=== PATIENT | female | born 1930 | race Hispanic/Latino ===

== ENCOUNTER 2017-06-10 15:23 | Emergency (ER) | payer OTHER ==
[~2017-06-10 15:23] MED LIST: ATOR10 PO; DOXY100T2 PO; GABA-318 PO; IRON150C5 PO; METO50TA18 PO
[2017-06-10] MEDS ORDERED: ACETAMINOPHEN 325 MG TAB ONE (15:49)
[2017-06-10] MEDS ORDERED: TETANUS/DIPHTHERIA TOXOID [ADULT] 0.5 ML VIAL IM ONE (16:01)
== END 2017-06-10 17:24 | disposition home or self-care (01) ==
LOC: EDH 15:23
DX: S43.491A Other sprain of right shoulder joint, initial encounter (principal); S80.02XA Contusion of left knee, initial encounter; S50.812A Abrasion of left forearm, initial encounter; E78.00 Pure hypercholesterolemia, unspecified; I10 Essential (primary) hypertension; W01.0XXA Fall on same level from slipping, tripping and stumbling without subsequent striking against object, initial encounter; Y93.01 Activity, walking, marching and hiking; Y92.89 Other specified places as the place of occurrence of the external cause; Y99.8 Other external cause status
CPT/HCPCS: 71100; 73000; 73020; 73030; 73080; 73562; 90471; 90714

== ENCOUNTER 2017-06-13 10:35 | Observation (INO) | payer OTHER ==
[~2017-06-13] VITALS: Ht 157.5 cm; Wt 65.7 kg
[2017-06-13 11:19] LABS: BASOPHILS % (AUTO) 0.2 % (0.0-5.0); HEMATOCRIT 42.1 % (36-48); LYMPHOCYTES % (AUTO) 4.4 % (21.0-51.0); MEAN CORPUSCULAR HEMOGLOBIN 27.5 pg (27.0-33.0); MEAN CORPUSCULAR HGB CONC 32.4 g/dL (32.0-36.0); MEAN CORPUSCULAR VOLUME 84.9 fL (79-99); MONOCYTES % (AUTO) 6.1 % (3.0-13.0); NEUTROPHILS % (AUTO) 89.3 % (40.0-77.0); PLATELET COUNT (AUTO) 293 K/uL (130-400); RED BLOOD CELL COUNT(AUTO) 4.96 MIL/uL (4.00-5.50); RED CELL DISTRIBUTION WIDTH 14.8 % (11.0-15.5); WHITE BLOOD COUNT (AUTO) 18.3 K/uL (4.8-10.8)
[2017-06-13 11:20] LABS: APPEARANCE,URINE Clear (CLEAR); BILIRUBIN,URINE Negative (NEGATIVE); COLOR,URINE Yellow (YELLOW); GLUCOSE, URINE (UA) Negative (NEGATIVE); KETONES,URINE >=80 mg/dL (NEGATIVE); LEUKOCYTE ESTERASE ,URINE Negative (NEGATIVE); NITRATE,URINE Negative (NEGATIVE); OCCULT BLOOD,URINE Large (NEGATIVE); PROTEIN,URINE POS 2+ (NEGATIVE); UROBILINOGEN,URINE 0.2 mg/dL (0.2-1.0)
[2017-06-13 11:29] LABS: CREATININE 0.6 mg/dL (0.5-1.5); POTASSIUM 3.5 mmol/L (3.5-5.1)
[2017-06-13 11:37] LABS: INR 1.04 (0.85-1.15); PARTIAL THROMBOPLASTIN TIME 22.6 SEC (26.3-35.5); PROTHROMBIN TIME 10.9 SEC (9.6-11.6)
[2017-06-13 11:40] LABS: BACTERIA,URINE Rare /HPF (None Seen); RBC,URINE 0-1 /HPF (0-1); SQUAMOUS EPITHELIAL CELL,UR Rare /LPF (0-2); WBC,URINE 0-1 /HPF (0-1)
[2017-06-13 11:51] LABS: ALBUMIN 3.2 g/dL (3.5-5.0); CREATINE KINASE MB 52.4 ng/mL (0.5-3.6); TOTAL PROTEIN, SERUM 7.7 g/dL (6.0-8.3)
[2017-06-13 12:50] LABS: B-TYPE NATRIURETIC PEPTIDE 87 pg/mL (0-100)
[2017-06-13] MEDS ORDERED: LEVOFLOXACIN 750 MG/D5W 150 ML 150 ML ONE (13:23)
[2017-06-13] MEDS ORDERED: HYDRALAZINE HCL 20 MG/ML VIAL IV PRN (13:45)
[2017-06-13] MEDS ORDERED: MAG HYDROX/AL HYDROX/SIMETH ES 30 ML SUSP UDCUP PO PRN (13:45)
[2017-06-13] MEDS ORDERED: MORPHINE SULFATE 2 MG/ML 1ML SYG IV PRN (13:45)
[2017-06-13] MEDS ORDERED: NITROGLYCERIN 0.4 MG SL TAB SL PRN (13:45)
[2017-06-13] MEDS ORDERED: ACETAMINOPHEN 325 MG TAB PO PRN ×2 (13:45)
[2017-06-13] MEDS ORDERED: ACETAMINOPHEN-CODEINE 300/30MG TAB PO PRN (13:45)
[2017-06-13] MEDS ORDERED: CEFTRIAXONE 1GM/D5W 50ML 50 ML IV SCH (13:45)
[2017-06-13] MEDS: AZITHROMYCIN 250 MG TABLET PO SCH (13:45)
[2017-06-13] MEDS ORDERED: ONDANSETRON HCL 4 MG/2 ML VIAL IV PRN (13:45)
[2017-06-13] MEDS ORDERED: LACTULOSE 20 GM/30 ML UDCUP PO PRN (13:45)
[2017-06-13] MEDS ORDERED: ONDANSETRON HCL 4 MG/2 ML VIAL ONE (13:51)
[2017-06-13] MEDS: CEFTRIAXONE SODIUM 1 GM IVP SCH (14:00)
[2017-06-13] MEDS ORDERED: ENOXAPARIN SODIUM 30 MG/0.3 ML SQ ONE (15:18)
[2017-06-13] MEDS ORDERED: SODIUM CHLORIDE 0.9% 1000ML 1,000 ML IV ONE (15:18)
[2017-06-13] MEDS ORDERED: CEFTRIAXONE SODIUM 1 GM ONE (15:18)
[2017-06-13] MEDS ORDERED: METOPROLOL TARTRATE 50 MG TAB ONE (15:18)
[2017-06-13] MEDS ORDERED: FAMOTIDINE 20MG TAB 20 MG TAB ONE (15:19)
[2017-06-13] MEDS ORDERED: AZITHROMYCIN 250 MG TABLET PO ONE (15:19)
[2017-06-13] MEDS ORDERED: ACETAMINOPHEN-CODEINE 300/30MG TAB ONE (15:30)
[2017-06-13 18:19] VITALS: BP 125/66
[2017-06-13 20:00] VITALS: BP 125/82
[2017-06-13] MEDS: FAMOTIDINE 20MG TAB 20 MG TAB PO SCH (22:21)
[2017-06-13] MEDS: METOPROLOL TARTRATE 25 MG TAB PO SCH (22:21)
[2017-06-14] VITALS: BP 141/76
[2017-06-14 03:32] LABS: HEMATOCRIT 37.9 % (36-48); MEAN CORPUSCULAR HEMOGLOBIN 27.6 pg (27.0-33.0); MEAN CORPUSCULAR HGB CONC 32.5 g/dL (32.0-36.0); MEAN CORPUSCULAR VOLUME 84.9 fL (79-99); PLATELET COUNT (AUTO) 237 K/uL (130-400); RED BLOOD CELL COUNT(AUTO) 4.47 MIL/uL (4.00-5.50); WHITE BLOOD COUNT (AUTO) 11.1 K/uL (4.8-10.8)
[2017-06-14] MEDS: SODIUM CHLORIDE 0.9% 1000ML 1,000 ML IV SCH ×2 (03:49→05:52)
[2017-06-14 03:50] LABS: CREATININE 0.6 mg/dL (0.5-1.5); POTASSIUM 3.5 mmol/L (3.5-5.1)
[2017-06-14 04:00] VITALS: BP 153/90
[2017-06-14 08:00] VITALS: BP 144/84
[2017-06-14] MEDS: METOPROLOL TARTRATE 25 MG TAB PO SCH ×2 (09:00→21:14)
[2017-06-14] MEDS: METOPROLOL TARTRATE 50 MG TAB PO SCH (09:32)
[2017-06-14] MEDS: IRON POLYSACCHARIDES COMPLEX 150 MG CAPSULE PO SCH (09:32)
[2017-06-14] MEDS: GABAPENTIN 300 MG CAPSULE PO SCH ×3 (09:32→21:14)
[2017-06-14] MEDS: FAMOTIDINE 20MG TAB 20 MG TAB PO SCH ×2 (09:32→21:14)
[2017-06-14] MEDS: ENOXAPARIN SODIUM 30 MG/0.3 ML SQ SCH (09:35)
[2017-06-14 12:00] VITALS: BP 150/86
[2017-06-14] MEDS: CEFTRIAXONE SODIUM 1 GM IVP SCH (14:24)
[2017-06-14] MEDS: AZITHROMYCIN 250 MG TABLET PO SCH (14:24)
[2017-06-14 16:00] VITALS: BP 149/87
[2017-06-14 20:00] VITALS: BP 132/72
[2017-06-14] MEDS ORDERED: ATORVASTATIN CALCIUM 10 MG TABLET PO SCH (21:00)
[2017-06-15] VITALS: BP 153/90
[2017-06-15 04:00] VITALS: BP 146/66
[2017-06-15 04:25] LABS: CREATININE 0.5 mg/dL (0.5-1.5)
[2017-06-15 08:00] VITALS: BP 137/69
[2017-06-15] MEDS: FAMOTIDINE 20MG TAB 20 MG TAB PO SCH (09:58)
[2017-06-15] MEDS: GABAPENTIN 300 MG CAPSULE PO SCH (09:58)
[2017-06-15] MEDS: IRON POLYSACCHARIDES COMPLEX 150 MG CAPSULE PO SCH (09:58)
[2017-06-15] MEDS: ENOXAPARIN SODIUM 30 MG/0.3 ML SQ SCH (09:58)
[2017-06-15] MEDS: METOPROLOL TARTRATE 50 MG TAB PO SCH (09:58)
[2017-06-15 11:00] VITALS: BP 137/74
[2017-06-15] MEDS ORDERED: ACYCLOVIR 200 MG CAPSULE PO SCH (11:00)
== END 2017-06-15 14:06 ==
LOC: EDH 10:35 → EDHIP 13:33 → 3AH 18:15
PROVIDERS: ADMIT Internal Medicine; ATTEND Internal Medicine
DX: M62.82 Rhabdomyolysis (principal); I10 Essential (primary) hypertension; E78.5 Hyperlipidemia, unspecified; E78.00 Pure hypercholesterolemia, unspecified; R53.81 Other malaise; D72.829 Elevated white blood cell count, unspecified; B02.9 Zoster without complications
CPT/HCPCS: 36415 ×3; 70450; 71045; 71046; 71100; 72125; 72170; 73030; 73560 ×2; 80048 ×2; 80053; 81001; 82550 ×3; 82553; 83605 ×2; 83880; 84484; 85025; 85027; 85610; 85730; 87040 ×2; 87804 ×2; 96361; 96372 ×2; 96374; 96375; 97039; 97161; 99285; A4218; G0378 ×49; G8978; G8979; G8980; G8981; G8982; G8983; J0696 ×3; J1650 ×3; J1956; J2405; J7030 ×2

== ENCOUNTER 2018-01-19 12:05 | Inpatient (IN) | payer OTHER ==
[~2018-01-19] VITALS: Ht 160 cm; Wt 60.8 kg
[2018-01-19] MEDS ORDERED: IOHEXOL 350 MG/ML 100ML INFUS..BTL IV ONE (12:29)
[2018-01-19 12:37] LABS: BASOPHILS % (AUTO) 0.5 % (0.0-5.0); EOSINOPHILS % (AUTO) 0.4 % (0.0-8.0); HEMATOCRIT 39.9 % (36-48); LYMPHOCYTES % (AUTO) 18.2 % (21.0-51.0); MEAN CORPUSCULAR HEMOGLOBIN 29.2 pg (27.0-33.0); MEAN CORPUSCULAR HGB CONC 33.4 g/dL (32.0-36.0); MEAN CORPUSCULAR VOLUME 87.2 fL (79-99); NEUTROPHILS % (AUTO) 73.9 % (40.0-77.0); NUCLEATED RED BLOOD CELLS 0.1 % (0.0-0.19); PLATELET COUNT (AUTO) 245 K/uL (130-400); RED BLOOD CELL COUNT(AUTO) 4.57 MIL/uL (4.00-5.50); RED CELL DISTRIBUTION WIDTH 14.2 % (11.0-15.5); WHITE BLOOD COUNT (AUTO) 10.1 K/uL (4.8-10.8)
[2018-01-19 12:58] LABS: CREATININE 0.7 mg/dL (0.5-1.5); INR 0.93 (0.85-1.15); PARTIAL THROMBOPLASTIN TIME 26.1 SEC (26.3-35.5); POTASSIUM 3.9 mmol/L (3.5-5.1); PROTHROMBIN TIME 9.8 SEC (9.6-11.6)
[2018-01-19 13:03] LABS: ALBUMIN 3.4 g/dL (3.5-5.0); BILIRUBIN,TOTAL 0.8 mg/dL (0.2-1.0); TOTAL PROTEIN, SERUM 7.1 g/dL (6.0-8.3)
[2018-01-19] MEDS ORDERED: LIDOCAINE HCL MPF 1% 5ML VIAL ONE (13:20)
[2018-01-19] MEDS ORDERED: ONDANSETRON HCL 4 MG/2 ML VIAL ONE ×2 (13:31→13:33)
[2018-01-19] MEDS ORDERED: MORPHINE SULFATE 4 MG/1ML SYG ONE ×3 (13:31→15:55)
[2018-01-19] MEDS ORDERED: TETANUS/DIPHTHERIA TOXOID [ADULT] 0.5 ML VIAL IM ONE (14:53)
[2018-01-19] MEDS ORDERED: SODIUM CHLORIDE 0.9% 1000ML 1,000 ML IV ONE (15:39)
[2018-01-19] MEDS ORDERED: ONDANSETRON HCL 4 MG/2 ML VIAL IVP PRN (15:45)
[2018-01-19] MEDS: SODIUM CHLORIDE 0.9% 1000ML 1,000 ML IV SCH (15:45)
[2018-01-19] MEDS ORDERED: MORPHINE SULFATE 4 MG/1ML SYG IVP PRN (15:45)
[2018-01-19 16:38] LABS: APPEARANCE,URINE Clear (CLEAR); BILIRUBIN,URINE Negative (NEGATIVE); COLOR,URINE Yellow (YELLOW); GLUCOSE, URINE (UA) Negative (NEGATIVE); KETONES,URINE Trace mg/dL (NEGATIVE); LEUKOCYTE ESTERASE ,URINE Moderate (NEGATIVE); NITRATE,URINE Negative (NEGATIVE); OCCULT BLOOD,URINE Small (NEGATIVE); PROTEIN,URINE Negative (NEGATIVE)
[2018-01-19 16:49] LABS: BACTERIA,URINE Rare /HPF (None Seen); SQUAMOUS EPITHELIAL CELL,UR Rare /HPF (0-2)
[2018-01-19 17:10] VITALS: BP 140/71
[2018-01-19 19:00] VITALS: BP 149/72
[2018-01-19] MEDS: MORPHINE SULFATE 4 MG/1ML SYG IVP PRN (20:55)
[2018-01-19 23:00] VITALS: BP 136/73
[2018-01-19] MEDS ORDERED: CLONIDINE HCL 0.1 MG TABLET PO PRN (23:00)
[2018-01-20] MEDS: SODIUM CHLORIDE 0.9% 1000ML 1,000 ML IV SCH ×2 (01:13→15:00)
[2018-01-20] MEDS: MORPHINE SULFATE 4 MG/1ML SYG IVP PRN ×4 (02:57→23:53)
[2018-01-20 04:00] VITALS: BP 146/80
[2018-01-20 04:07] LABS: HEMATOCRIT 38.7 % (36-48); MEAN CORPUSCULAR HGB CONC 33.1 g/dL (32.0-36.0); MEAN CORPUSCULAR VOLUME 87.8 fL (79-99); PLATELET COUNT (AUTO) 168 K/uL (130-400); RED CELL DISTRIBUTION WIDTH 14.5 % (11.0-15.5); WHITE BLOOD COUNT (AUTO) 6.8 K/uL (4.8-10.8)
[2018-01-20 04:25] LABS: CREATININE 0.7 mg/dL (0.5-1.5); POTASSIUM 3.9 mmol/L (3.5-5.1)
[2018-01-20 07:00] VITALS: BP 140/84
[2018-01-20 11:00] VITALS: BP 141/55
[2018-01-20 16:54] VITALS: BP 174/93
[2018-01-20] MEDS: LOSARTAN 50 MG TABLET PO SCH (19:15)
[2018-01-20 19:23] LABS: BASOPHILS % (AUTO) 0.3 % (0.0-5.0); EOSINOPHILS % (AUTO) 0.5 % (0.0-8.0); HEMATOCRIT 36.1 % (36-48); LYMPHOCYTES % (AUTO) 9.3 % (21.0-51.0); MEAN CORPUSCULAR HEMOGLOBIN 29.1 pg (27.0-33.0); MEAN CORPUSCULAR HGB CONC 33.2 g/dL (32.0-36.0); MEAN CORPUSCULAR VOLUME 87.6 fL (79-99); MONOCYTES % (AUTO) 8.6 % (3.0-13.0); NEUTROPHILS % (AUTO) 81.3 % (40.0-77.0); PLATELET COUNT (AUTO) 160 K/uL (130-400); RED BLOOD CELL COUNT(AUTO) 4.12 MIL/uL (4.00-5.50); RED CELL DISTRIBUTION WIDTH 14.4 % (11.0-15.5); WHITE BLOOD COUNT (AUTO) 7.1 K/uL (4.8-10.8)
[2018-01-20 20:00] VITALS: BP 179/81
[2018-01-20] MEDS ORDERED: METOPROLOL TARTRATE 25 MG TAB PO SCH (21:00)
[2018-01-20] MEDS: GABAPENTIN 300 MG CAPSULE PO SCH (21:00)
[2018-01-20] MEDS: ATORVASTATIN CALCIUM 20 MG TABLET PO SCH (21:00)
[2018-01-20] MEDS: ENOXAPARIN SODIUM 30 MG/0.3 ML SQ SCH (21:00)
[2018-01-20] MEDS: METOPROLOL TARTRATE 50 MG TAB PO SCH (21:00)
[2018-01-20] MEDS ORDERED: HALOPERIDOL LACTATE 5 MG/ML VIAL ONE (22:08)
[2018-01-21] VITALS (7 sets, daily range): BP systolic 98–233; BP diastolic 51–103
[2018-01-21] MEDS: SODIUM CHLORIDE 0.9% 1000ML 1,000 ML IV SCH ×2 (00:22→08:52)
[2018-01-21] MEDS ORDERED: HYDRALAZINE HCL 20 MG/ML VIAL ONE (07:45)
[2018-01-21] MEDS: MORPHINE SULFATE 4 MG/1ML SYG IVP PRN (07:47)
[2018-01-21] MEDS ORDERED: HYDRALAZINE HCL 20 MG/ML VIAL IV PRN (08:15)
[2018-01-21] MEDS: METOPROLOL TARTRATE 50 MG TAB PO SCH (08:30)
[2018-01-21] MEDS: LOSARTAN 50 MG TABLET PO SCH (08:30)
[2018-01-21] MEDS: GABAPENTIN 300 MG CAPSULE PO SCH ×3 (08:31→19:56)
[2018-01-21] MEDS: CLONAZEPAM 1 MG TABLET PO SCH ×2 (08:31→19:56)
[2018-01-21] MEDS: ENOXAPARIN SODIUM 30 MG/0.3 ML SQ SCH ×2 (08:35→19:57)
[2018-01-21] MEDS ORDERED: LABETALOL HCL 100 MG TABLET PO SCH (09:00)
[2018-01-21] MEDS ORDERED: CYAN500 PO (11:55)
[2018-01-21] MEDS ORDERED: METO25TA6 PO (11:55)
[2018-01-21] MEDS ORDERED: MECL-129 PO (11:55)
[2018-01-21] MEDS ORDERED: CHOL200074 PO (11:55)
[2018-01-21] MEDS ORDERED: KETOROLAC TROMETHAMINE 15MG/ML IV PRN (16:00)
[2018-01-21] MEDS ORDERED: LABETALOL HCL 100 MG TABLET ONE (16:39)
[2018-01-21] MEDS ORDERED: ACETAMINOPHEN 325 MG TAB ONE (16:40)
[2018-01-21] MEDS: ACETAMINOPHEN 325 MG TAB PO SCH (16:44)
[2018-01-21] MEDS: LABETALOL HCL 100 MG TABLET PO SCH (16:45)
[2018-01-21] MEDS: IRON POLYSACCHARIDES COMPLEX 150 MG CAPSULE PO SCH (16:45)
[2018-01-21] MEDS: ATORVASTATIN CALCIUM 20 MG TABLET PO SCH (19:55)
[2018-01-21 20:08] LABS: APPEARANCE,URINE Clear (CLEAR); BILIRUBIN,URINE Negative (NEGATIVE); COLOR,URINE Yellow (YELLOW); GLUCOSE, URINE (UA) Negative (NEGATIVE); KETONES,URINE >=80 mg/dL (NEGATIVE); LEUKOCYTE ESTERASE ,URINE Negative (NEGATIVE); NITRATE,URINE Negative (NEGATIVE); OCCULT BLOOD,URINE Negative (NEGATIVE); PH,URINE 6.5 (5.0-8.0); PROTEIN,URINE POS 1+ (NEGATIVE)
[2018-01-21 20:16] LABS: BACTERIA,URINE None Seen /HPF (None Seen); RBC,URINE None Seen /HPF (0-1); WBC,URINE None Seen /HPF (0-1)
[2018-01-21] MEDS ORDERED: CEFAZOLIN SODIUM 1 GM VIAL IVP PRN (20:30)
[2018-01-21] MEDS: KETOROLAC TROMETHAMINE 15MG/ML IV SCH (21:28)
[2018-01-22] VITALS (22 sets, daily range): BP systolic 98–170; BP diastolic 50–76
[2018-01-22] MEDS: ACETAMINOPHEN 325 MG TAB PO SCH ×4 (01:00→20:07)
[2018-01-22] MEDS: KETOROLAC TROMETHAMINE 15MG/ML IV SCH ×4 (04:15→22:28)
[2018-01-22 04:55] LABS: HEMATOCRIT 29.7 % (36-48); MEAN CORPUSCULAR HEMOGLOBIN 29.8 pg (27.0-33.0); MEAN CORPUSCULAR HGB CONC 33.8 g/dL (32.0-36.0); PLATELET COUNT (AUTO) 147 K/uL (130-400); RED BLOOD CELL COUNT(AUTO) 3.37 MIL/uL (4.00-5.50); RED CELL DISTRIBUTION WIDTH 14.4 % (11.0-15.5); WHITE BLOOD COUNT (AUTO) 5.7 K/uL (4.8-10.8)
[2018-01-22 05:01] LABS: PARTIAL THROMBOPLASTIN TIME 30.4 SEC (26.3-35.5); PROTHROMBIN TIME 10.5 SEC (9.6-11.6)
[2018-01-22 05:19] LABS: CREATININE 0.9 mg/dL (0.5-1.5); THYROID STIMULATING HORMONE 1.08 uIU/mL (0.36-3.74)
[2018-01-22] MEDS ORDERED: POTASSIUM CHLORIDE 20MEQ/100ML 100 ML IV ONE (05:39)
[2018-01-22] MEDS ORDERED: POTASSIUM CHLORIDE 20MEQ/100ML 100 ML IV PRN ×2 (05:45)
[2018-01-22] MEDS ORDERED: LIDOCAINE HCL-MPF 1% 2ML VIAL IVP PRN ×2 (05:45)
[2018-01-22] MEDS ORDERED: POTASSIUM CHLORIDE 20 MEQ ERTAB PO PRN (05:45)
[2018-01-22] MEDS ORDERED: POTASSIUM CHLORIDE 10% ELIXIR 20 MEQ/15 ML UDCUP PO PRN (05:45)
[2018-01-22] MEDS: LABETALOL HCL 100 MG TABLET PO SCH ×2 (09:00→20:04)
[2018-01-22] MEDS: GABAPENTIN 300 MG CAPSULE PO SCH ×3 (09:00→20:20)
[2018-01-22] MEDS: CLONAZEPAM 1 MG TABLET PO SCH ×2 (09:00→20:06)
[2018-01-22] MEDS: IRON POLYSACCHARIDES COMPLEX 150 MG CAPSULE PO SCH (09:00)
[2018-01-22] MEDS: LOSARTAN 50 MG TABLET PO SCH (09:00)
[2018-01-22] MEDS: ENOXAPARIN SODIUM 30 MG/0.3 ML SQ SCH ×2 (09:00→20:14)
[2018-01-22] MEDS ORDERED: PROPOFOL 10 MG/ML 20ML VIAL IV ONE ×2 (10:24→14:15)
[2018-01-22] MEDS ORDERED: ONDANSETRON HCL 4 MG/2 ML VIAL ONE ×3 (10:24→14:49)
[2018-01-22] MEDS ORDERED: FENTANYL CITRATE PF 50 MCG/1 ML 2ML VIAL ONE (10:24)
[2018-01-22] MEDS ORDERED: LIDOCAINE PF 2% 5ML ABBOJECT ONE ×2 (10:24→14:14)
[2018-01-22] MEDS ORDERED: EPHEDRINE SULFATE 50 MG/ML AMPULE ONE ×2 (10:24→15:15)
[2018-01-22] MEDS ORDERED: ROPIVACAINE 0.5% 5MG/ML 30ML IJ ONE (10:28)
[2018-01-22] MEDS ORDERED: DEXAMETHASONE SOD PHOSPHATE 10MG/ML 1ML VIAL ONE (10:29)
[2018-01-22] MEDS ORDERED: FAMOTIDINE/PF 20 MG/2 ML VIAL IV ONE (14:20)
[2018-01-22] MEDS ORDERED: HYDROMORPHONE 1 MG/1 ML AMP ONE (14:31)
[2018-01-22] MEDS ORDERED: CEFAZOLIN SODIUM 1 GM VIAL ONE (15:00)
[2018-01-22] MEDS ORDERED: SUCCINYLCHOLINE 200MG/10ML SYR ONE (15:19)
[2018-01-22] MEDS: SODIUM CHLORIDE 0.9% 1000ML 1,000 ML IV SCH (16:55)
[2018-01-22] MEDS: ACETAMINOPHEN EXTRA STRENGTH 500 MG TABLET PO SCH ×2 (18:30→20:06)
[2018-01-22] MEDS: ATORVASTATIN CALCIUM 20 MG TABLET PO SCH (20:06)
[2018-01-22] MEDS: CEFAZOLIN SODIUM 1 GM VIAL IVP SCH (22:27)
[2018-01-23] VITALS (7 sets, daily range): BP systolic 98–126; BP diastolic 52–68
[2018-01-23] MEDS: ACETAMINOPHEN 325 MG TAB PO SCH ×4 (00:19→20:26)
[2018-01-23] MEDS: KETOROLAC TROMETHAMINE 15MG/ML IV SCH ×4 (04:08→17:09)
[2018-01-23 04:17] LABS: BASOPHILS % (AUTO) 0.1 % (0.0-5.0); HEMATOCRIT 30.6 % (36-48); LYMPHOCYTES % (AUTO) 6.1 % (21.0-51.0); MEAN CORPUSCULAR HEMOGLOBIN 30.2 pg (27.0-33.0); MEAN CORPUSCULAR HGB CONC 34.1 g/dL (32.0-36.0); MEAN CORPUSCULAR VOLUME 88.4 fL (79-99); MONOCYTES % (AUTO) 4.3 % (3.0-13.0); NEUTROPHILS % (AUTO) 89.5 % (40.0-77.0); PLATELET COUNT (AUTO) 186 K/uL (130-400); RED BLOOD CELL COUNT(AUTO) 3.46 MIL/uL (4.00-5.50); RED CELL DISTRIBUTION WIDTH 14.7 % (11.0-15.5); WHITE BLOOD COUNT (AUTO) 5.7 K/uL (4.8-10.8)
[2018-01-23 04:25] LABS: CREATININE 0.7 mg/dL (0.5-1.5); POTASSIUM 3.7 mmol/L (3.5-5.1)
[2018-01-23] MEDS: CEFAZOLIN SODIUM 1 GM VIAL IVP SCH (05:30)
[2018-01-23] MEDS: ENOXAPARIN SODIUM 30 MG/0.3 ML SQ SCH ×2 (09:03→20:31)
[2018-01-23] MEDS: CLONAZEPAM 1 MG TABLET PO SCH ×2 (09:03→20:25)
[2018-01-23] MEDS: LOSARTAN 50 MG TABLET PO SCH (09:04)
[2018-01-23] MEDS: LABETALOL HCL 100 MG TABLET PO SCH ×2 (09:04→20:25)
[2018-01-23] MEDS: IRON POLYSACCHARIDES COMPLEX 150 MG CAPSULE PO SCH (09:04)
[2018-01-23] MEDS: GABAPENTIN 300 MG CAPSULE PO SCH ×3 (09:05→20:25)
[2018-01-23] MEDS ORDERED: HALOPERIDOL 5 MG TABLET PO PRN ×2 (16:30→17:15)
[2018-01-23] MEDS: DiphenhydrAMINE HCL 50 MG/ML VIAL IM PRN ×2 (17:09→22:49)
[2018-01-23 18:17] LABS: APPEARANCE,URINE Clear (CLEAR); BILIRUBIN,URINE Negative (NEGATIVE); COLOR,URINE Dark Yellow (YELLOW); GLUCOSE, URINE (UA) Negative (NEGATIVE); KETONES,URINE Trace mg/dL (NEGATIVE); LEUKOCYTE ESTERASE ,URINE Trace (NEGATIVE); NITRATE,URINE Negative (NEGATIVE); OCCULT BLOOD,URINE Negative (NEGATIVE); PROTEIN,URINE POS 1+ (NEGATIVE)
[2018-01-23 18:27] LABS: BACTERIA,URINE Rare /HPF (None Seen); RBC,URINE 0-1 /HPF (0-1); SQUAMOUS EPITHELIAL CELL,UR Few /HPF (0-2)
[2018-01-23] MEDS: ATORVASTATIN CALCIUM 20 MG TABLET PO SCH (20:25)
[2018-01-24] MEDS: ACETAMINOPHEN 325 MG TAB PO SCH ×4 (01:00→18:28)
[2018-01-24] MEDS: KETOROLAC TROMETHAMINE 15MG/ML IV SCH ×4 (04:00→18:29)
[2018-01-24 04:54] VITALS: BP 106/54
[2018-01-24 07:30] VITALS: BP 135/65
[2018-01-24] MEDS: LOSARTAN 50 MG TABLET PO SCH ×3 (08:55→17:00)
[2018-01-24] MEDS: CLONAZEPAM 1 MG TABLET PO SCH ×3 (08:55→19:52)
[2018-01-24] MEDS: GABAPENTIN 300 MG CAPSULE PO SCH ×4 (08:55→19:52)
[2018-01-24] MEDS: IRON POLYSACCHARIDES COMPLEX 150 MG CAPSULE PO SCH ×3 (08:55→17:00)
[2018-01-24] MEDS: LABETALOL HCL 100 MG TABLET PO SCH ×3 (08:56→19:52)
[2018-01-24] MEDS: ENOXAPARIN SODIUM 30 MG/0.3 ML SQ SCH ×3 (08:56→19:52)
[2018-01-24 11:00] VITALS: BP 143/64
[2018-01-24 16:00] VITALS: BP 132/59
[2018-01-24 19:36] VITALS: BP 92/52
[2018-01-24] MEDS: ATORVASTATIN CALCIUM 20 MG TABLET PO SCH (20:01)
[2018-01-24] MEDS: DiphenhydrAMINE HCL 50 MG/ML VIAL IM PRN (20:02)
[2018-01-24 23:46] VITALS: BP 99/58
[2018-01-25] MEDS: ACETAMINOPHEN 325 MG TAB PO SCH ×4 (00:03→18:51)
[2018-01-25] MEDS: KETOROLAC TROMETHAMINE 15MG/ML IV SCH ×4 (03:25→21:45)
[2018-01-25 04:04] VITALS: BP 108/59
[2018-01-25 04:31] LABS: BASOPHILS % (AUTO) 0.4 % (0.0-5.0); EOSINOPHILS % (AUTO) 1.4 % (0.0-8.0); LYMPHOCYTES % (AUTO) 26.2 % (21.0-51.0); MEAN CORPUSCULAR HEMOGLOBIN 29.2 pg (27.0-33.0); MEAN CORPUSCULAR HGB CONC 32.8 g/dL (32.0-36.0); MEAN CORPUSCULAR VOLUME 88.9 fL (79-99); MONOCYTES % (AUTO) 11.9 % (3.0-13.0); NEUTROPHILS % (AUTO) 60.1 % (40.0-77.0); PLATELET COUNT (AUTO) 194 K/uL (130-400); RED BLOOD CELL COUNT(AUTO) 3.37 MIL/uL (4.00-5.50); RED CELL DISTRIBUTION WIDTH 14.8 % (11.0-15.5); WHITE BLOOD COUNT (AUTO) 3.6 K/uL (4.8-10.8)
[2018-01-25 04:55] LABS: ALBUMIN 2.3 g/dL (3.5-5.0); BILIRUBIN,TOTAL 0.6 mg/dL (0.2-1.0); CREATININE 0.6 mg/dL (0.5-1.5); POTASSIUM 3.4 mmol/L (3.5-5.1); TOTAL PROTEIN, SERUM 5.6 g/dL (6.0-8.3)
[2018-01-25 08:00] VITALS: BP 138/66
[2018-01-25] MEDS: LOSARTAN 50 MG TABLET PO SCH (08:48)
[2018-01-25] MEDS: CLONAZEPAM 1 MG TABLET PO SCH ×2 (08:48→19:43)
[2018-01-25] MEDS: LABETALOL HCL 100 MG TABLET PO SCH ×2 (08:48→19:43)
[2018-01-25] MEDS: IRON POLYSACCHARIDES COMPLEX 150 MG CAPSULE PO SCH (08:49)
[2018-01-25] MEDS: GABAPENTIN 300 MG CAPSULE PO SCH ×3 (08:49→19:46)
[2018-01-25] MEDS: ENOXAPARIN SODIUM 30 MG/0.3 ML SQ SCH ×2 (08:50→19:46)
[2018-01-25 11:00] VITALS: BP 128/69
[2018-01-25] MEDS: BISACODYL 5 MG TABLET.DR PO PRN (15:54)
[2018-01-25 19:04] VITALS: BP 109/61
[2018-01-25] MEDS: ATORVASTATIN CALCIUM 20 MG TABLET PO SCH (19:42)
[2018-01-25 23:26] VITALS: BP 114/69
[2018-01-26] MEDS: ACETAMINOPHEN 325 MG TAB PO SCH ×4 (00:41→18:46)
[2018-01-26] MEDS: DiphenhydrAMINE HCL 50 MG/ML VIAL IM PRN (02:06)
[2018-01-26 03:58] VITALS: BP 120/70
[2018-01-26] MEDS: KETOROLAC TROMETHAMINE 15MG/ML IV SCH ×2 (04:03→10:15)
[2018-01-26 05:19] LABS: BASOPHILS % (AUTO) 0.3 % (0.0-5.0); EOSINOPHILS % (AUTO) 1.1 % (0.0-8.0); HEMATOCRIT 34.7 % (36-48); LYMPHOCYTES % (AUTO) 14.9 % (21.0-51.0); MEAN CORPUSCULAR HEMOGLOBIN 28.4 pg (27.0-33.0); MEAN CORPUSCULAR HGB CONC 31.8 g/dL (32.0-36.0); MEAN CORPUSCULAR VOLUME 89.2 fL (79-99); MONOCYTES % (AUTO) 10.3 % (3.0-13.0); NEUTROPHILS % (AUTO) 73.4 % (40.0-77.0); PLATELET COUNT (AUTO) 198 K/uL (130-400); RED BLOOD CELL COUNT(AUTO) 3.89 MIL/uL (4.00-5.50); RED CELL DISTRIBUTION WIDTH 14.8 % (11.0-15.5); WHITE BLOOD COUNT (AUTO) 5.9 K/uL (4.8-10.8)
[2018-01-26 08:00] VITALS: BP 130/65
[2018-01-26] MEDS: CLONAZEPAM 1 MG TABLET PO SCH ×2 (08:53→21:35)
[2018-01-26] MEDS: LOSARTAN 50 MG TABLET PO SCH (08:54)
[2018-01-26] MEDS: IRON POLYSACCHARIDES COMPLEX 150 MG CAPSULE PO SCH (08:54)
[2018-01-26] MEDS: LABETALOL HCL 100 MG TABLET PO SCH ×2 (08:55→21:35)
[2018-01-26] MEDS: GABAPENTIN 300 MG CAPSULE PO SCH ×3 (08:56→21:34)
[2018-01-26] MEDS: ENOXAPARIN SODIUM 30 MG/0.3 ML SQ SCH ×2 (08:57→21:36)
[2018-01-26 12:00] VITALS: BP 112/68
[2018-01-26 16:00] VITALS: BP 108/68
[2018-01-26 19:30] VITALS: BP 103/51
[2018-01-26] MEDS: ATORVASTATIN CALCIUM 20 MG TABLET PO SCH (21:34)
[2018-01-26 23:02] VITALS: BP 115/59
[2018-01-27] MEDS: ACETAMINOPHEN 325 MG TAB PO SCH ×4 (01:00→18:17)
[2018-01-27 03:00] VITALS: BP 144/71
[2018-01-27 08:00] VITALS: BP 153/73
[2018-01-27] MEDS: PAROXETINE HCL 20 MG TABLET PO SCH (08:51)
[2018-01-27] MEDS: LOSARTAN 50 MG TABLET PO SCH (08:51)
[2018-01-27] MEDS: CLONAZEPAM 1 MG TABLET PO SCH ×2 (08:51→21:24)
[2018-01-27] MEDS: LABETALOL HCL 100 MG TABLET PO SCH ×2 (08:52→21:24)
[2018-01-27] MEDS: GABAPENTIN 300 MG CAPSULE PO SCH ×3 (08:55→21:23)
[2018-01-27] MEDS: IRON POLYSACCHARIDES COMPLEX 150 MG CAPSULE PO SCH (08:55)
[2018-01-27] MEDS: ENOXAPARIN SODIUM 30 MG/0.3 ML SQ SCH ×2 (08:59→21:25)
[2018-01-27 12:00] VITALS: BP 113/65
[2018-01-27 16:35] VITALS: BP 109/60
[2018-01-27 20:15] VITALS: BP 131/66
[2018-01-27] MEDS: ATORVASTATIN CALCIUM 20 MG TABLET PO SCH (21:23)
[2018-01-28] VITALS (8 sets, daily range): BP systolic 95–164; BP diastolic 53–85
[2018-01-28] MEDS: ACETAMINOPHEN 325 MG TAB PO SCH ×4 (01:32→18:44)
[2018-01-28] MEDS: PAROXETINE HCL 20 MG TABLET PO SCH (09:27)
[2018-01-28] MEDS: LOSARTAN 50 MG TABLET PO SCH (09:27)
[2018-01-28] MEDS: IRON POLYSACCHARIDES COMPLEX 150 MG CAPSULE PO SCH (09:27)
[2018-01-28] MEDS: LABETALOL HCL 100 MG TABLET PO SCH ×2 (09:27→21:36)
[2018-01-28] MEDS: CLONAZEPAM 1 MG TABLET PO SCH ×2 (09:28→21:36)
[2018-01-28] MEDS: GABAPENTIN 300 MG CAPSULE PO SCH ×3 (09:28→21:36)
[2018-01-28] MEDS: ENOXAPARIN SODIUM 30 MG/0.3 ML SQ SCH ×2 (09:29→21:38)
[2018-01-28 10:48] LABS: MEAN CORPUSCULAR HEMOGLOBIN 28.6 pg (27.0-33.0); MEAN CORPUSCULAR HGB CONC 32.4 g/dL (32.0-36.0); MEAN CORPUSCULAR VOLUME 88.3 fL (79-99); PLATELET COUNT (AUTO) 241 K/uL (130-400); RED BLOOD CELL COUNT(AUTO) 3.73 MIL/uL (4.00-5.50); RED CELL DISTRIBUTION WIDTH 14.7 % (11.0-15.5); WHITE BLOOD COUNT (AUTO) 4.2 K/uL (4.8-10.8)
[2018-01-28 10:54] LABS: CREATININE 0.6 mg/dL (0.5-1.5)
[2018-01-28] MEDS: ATORVASTATIN CALCIUM 20 MG TABLET PO SCH (21:36)
[2018-01-29] MEDS: ACETAMINOPHEN 325 MG TAB PO SCH ×4 (00:26→18:28)
[2018-01-29 04:32] VITALS: BP 104/54
[2018-01-29 07:32] VITALS: BP 115/61
[2018-01-29] MEDS: IRON POLYSACCHARIDES COMPLEX 150 MG CAPSULE PO SCH (09:34)
[2018-01-29] MEDS: GABAPENTIN 300 MG CAPSULE PO SCH ×3 (09:34→20:27)
[2018-01-29] MEDS: PAROXETINE HCL 20 MG TABLET PO SCH (09:35)
[2018-01-29] MEDS: CLONAZEPAM 1 MG TABLET PO SCH ×2 (09:35→20:25)
[2018-01-29] MEDS: LABETALOL HCL 100 MG TABLET PO SCH ×2 (09:35→20:26)
[2018-01-29] MEDS: MEGESTROL 400 MG/10 ML UDCUP PO SCH (09:36)
[2018-01-29] MEDS: ENOXAPARIN SODIUM 30 MG/0.3 ML SQ SCH ×2 (09:36→20:29)
[2018-01-29] MEDS: LOSARTAN 50 MG TABLET PO SCH (09:57)
[2018-01-29 10:44] VITALS: BP 136/73
[2018-01-29 16:09] VITALS: BP 96/52
[2018-01-29 19:43] VITALS: BP 141/69
[2018-01-29] MEDS: ATORVASTATIN CALCIUM 20 MG TABLET PO SCH (20:26)
[2018-01-29] MEDS: KETOROLAC TROMETHAMINE 15MG/ML IV PRN (23:50)
[2018-01-29 23:54] VITALS: BP 142/70
[2018-01-30] MEDS: ACETAMINOPHEN 325 MG TAB PO SCH ×5 (01:00→19:00)
[2018-01-30 03:28] VITALS: BP 133/63
[2018-01-30 08:00] VITALS: BP 129/73
[2018-01-30] MEDS: LOSARTAN 50 MG TABLET PO SCH (09:43)
[2018-01-30] MEDS: CLONAZEPAM 1 MG TABLET PO SCH ×2 (09:43→21:00)
[2018-01-30] MEDS: IRON POLYSACCHARIDES COMPLEX 150 MG CAPSULE PO SCH (09:43)
[2018-01-30] MEDS: GABAPENTIN 300 MG CAPSULE PO SCH ×3 (09:44→19:54)
[2018-01-30] MEDS: LABETALOL HCL 100 MG TABLET PO SCH ×2 (09:44→19:58)
[2018-01-30] MEDS: MEGESTROL 400 MG/10 ML UDCUP PO SCH (09:44)
[2018-01-30] MEDS: PAROXETINE HCL 20 MG TABLET PO SCH (09:44)
[2018-01-30] MEDS: ENOXAPARIN SODIUM 30 MG/0.3 ML SQ SCH ×2 (09:46→19:55)
[2018-01-30] MEDS: KETOROLAC TROMETHAMINE 15MG/ML IV PRN (11:04)
[2018-01-30 12:00] VITALS: BP 133/70
[2018-01-30 16:00] VITALS: BP 107/59
[2018-01-30] MEDS: ATORVASTATIN CALCIUM 20 MG TABLET PO SCH (19:56)
[2018-01-30 19:59] VITALS: BP 107/56
[2018-01-30 23:36] VITALS: BP 140/67
[2018-01-31] MEDS: KETOROLAC TROMETHAMINE 15MG/ML IV PRN ×2 (00:25→06:35)
[2018-01-31] MEDS: ACETAMINOPHEN 325 MG TAB PO SCH ×4 (00:26→19:42)
[2018-01-31 04:10] VITALS: BP 105/58
[2018-01-31 08:00] VITALS: BP 138/66
[2018-01-31] MEDS: LABETALOL HCL 100 MG TABLET PO SCH ×2 (09:42→19:42)
[2018-01-31] MEDS: PAROXETINE HCL 20 MG TABLET PO SCH (09:42)
[2018-01-31] MEDS: MEGESTROL 400 MG/10 ML UDCUP PO SCH (09:43)
[2018-01-31] MEDS: GABAPENTIN 300 MG CAPSULE PO SCH ×3 (09:43→19:42)
[2018-01-31] MEDS: LOSARTAN 50 MG TABLET PO SCH (09:43)
[2018-01-31] MEDS: CLONAZEPAM 1 MG TABLET PO SCH ×2 (09:43→19:39)
[2018-01-31] MEDS: IRON POLYSACCHARIDES COMPLEX 150 MG CAPSULE PO SCH (09:43)
[2018-01-31] MEDS: ENOXAPARIN SODIUM 30 MG/0.3 ML SQ SCH ×2 (09:44→19:40)
[2018-01-31] MEDS: TRAMADOL HCL 50 MG TABLET PO PRN (10:20)
[2018-01-31 11:00] VITALS: BP 100/50
[2018-01-31 16:00] VITALS: BP 117/68
[2018-01-31] MEDS: DiphenhydrAMINE HCL 50 MG/ML VIAL IM PRN (19:39)
[2018-01-31] MEDS: ATORVASTATIN CALCIUM 20 MG TABLET PO SCH (19:39)
[2018-01-31 20:00] VITALS: BP 117/60
[2018-02-01] VITALS (7 sets, daily range): BP systolic 110–125; BP diastolic 56–71
[2018-02-01] MEDS: ACETAMINOPHEN 325 MG TAB PO SCH ×4 (00:13→17:59)
[2018-02-01] MEDS: BISACODYL 5 MG TABLET.DR PO PRN (08:52)
[2018-02-01] MEDS: CLONAZEPAM 1 MG TABLET PO SCH (08:56)
[2018-02-01] MEDS: LOSARTAN 50 MG TABLET PO SCH ×2 (08:56→09:00)
[2018-02-01] MEDS: ENOXAPARIN SODIUM 30 MG/0.3 ML SQ SCH ×2 (08:57→23:21)
[2018-02-01] MEDS: MEGESTROL 400 MG/10 ML UDCUP PO SCH (08:57)
[2018-02-01] MEDS: PAROXETINE HCL 20 MG TABLET PO SCH (08:57)
[2018-02-01] MEDS: LABETALOL HCL 100 MG TABLET PO SCH ×2 (09:00→23:20)
[2018-02-01] MEDS: IRON POLYSACCHARIDES COMPLEX 150 MG CAPSULE PO SCH (09:01)
[2018-02-01] MEDS: KETOROLAC TROMETHAMINE 15MG/ML IV PRN ×2 (09:01→17:57)
[2018-02-01] MEDS: GABAPENTIN 300 MG CAPSULE PO SCH ×3 (09:01→23:19)
[2018-02-01] MEDS: TRAMADOL HCL 50 MG TABLET PO PRN (14:41)
[2018-02-01] MEDS ORDERED: CLONAZEPAM 0.5 MG TABLET PO PRN (15:45)
[2018-02-01] MEDS ORDERED: TRAZODONE HCL 50 MG TAB PO SCH (21:00)
[2018-02-01] MEDS: ATORVASTATIN CALCIUM 20 MG TABLET PO SCH (23:19)
[2018-02-02] MEDS: ACETAMINOPHEN 325 MG TAB PO SCH ×3 (00:59→16:32)
[2018-02-02 03:22] VITALS: BP 112/70
[2018-02-02 08:38] VITALS: BP 108/63
[2018-02-02] MEDS: LABETALOL HCL 100 MG TABLET PO SCH (09:00)
[2018-02-02] MEDS: LOSARTAN 50 MG TABLET PO SCH (09:00)
[2018-02-02] MEDS: PAROXETINE HCL 20 MG TABLET PO SCH (09:50)
[2018-02-02] MEDS: GABAPENTIN 300 MG CAPSULE PO SCH ×2 (09:50→16:27)
[2018-02-02] MEDS: MEGESTROL 400 MG/10 ML UDCUP PO SCH (09:50)
[2018-02-02] MEDS: IRON POLYSACCHARIDES COMPLEX 150 MG CAPSULE PO SCH (09:50)
[2018-02-02] MEDS: ENOXAPARIN SODIUM 30 MG/0.3 ML SQ SCH (09:52)
[2018-02-02 11:15] VITALS: BP 107/58
[2018-02-02] MEDS ORDERED: MEGE400O4 PO (16:34)
[2018-02-02] MEDS ORDERED: LABE100T5 PO (16:34)
[2018-02-02] MEDS ORDERED: TRAZ-220 PO (16:34)
[2018-02-02] MEDS ORDERED: TRAM50TA4 PO (16:34)
[2018-02-02] MEDS ORDERED: LOSA50TA2 PO (16:34)
[2018-02-02] MEDS: KETOROLAC TROMETHAMINE 15MG/ML IV PRN (16:37)
[2018-02-02 19:22] VITALS: BP 94/53
== END 2018-02-02 20:00 | DRG 493 ==
LOC: EDH 12:05 → EDHIP 13:50 → 2DH 17:06 → 4AH 01-20 16:32
PROVIDERS: ADMIT Internal Medicine; ATTEND Internal Medicine
PROC: 3E0234Z Introduction of Serum, Toxoid and Vaccine into Muscle, Percutaneous Approach (ICD-10-PCS; 2018-01-22)
PROC: 0QSK04Z Reposition Left Fibula with Internal Fixation Device, Open Approach (ICD-10-PCS; principal; 2018-01-22 14:55)
PROC: 0QSH04Z Reposition Left Tibia with Internal Fixation Device, Open Approach (ICD-10-PCS; 2018-01-22 14:55)
DX: S82.842A Displaced bimalleolar fracture of left lower leg, initial encounter for closed fracture (principal); S06.0X9A Concussion with loss of consciousness of unspecified duration, initial encounter; F05 Delirium due to known physiological condition; E44.0 Moderate protein-calorie malnutrition; M47.812 Spondylosis without myelopathy or radiculopathy, cervical region; K76.0 Fatty (change of) liver, not elsewhere classified; I10 Essential (primary) hypertension; S93.432A Sprain of tibiofibular ligament of left ankle, initial encounter; M19.90 Unspecified osteoarthritis, unspecified site; D70.9 Neutropenia, unspecified; E78.5 Hyperlipidemia, unspecified; E87.6 Hypokalemia; E89.0 Postprocedural hypothyroidism; F41.1 Generalized anxiety disorder; F43.10 Post-traumatic stress disorder, unspecified; J44.9 Chronic obstructive pulmonary disease, unspecified; J98.4 Other disorders of lung; E78.00 Pure hypercholesterolemia, unspecified; V43.52XA Car driver injured in collision with other type car in traffic accident, initial encounter; Y92.89 Other specified places as the place of occurrence of the external cause; Y93.89 Activity, other specified; Y99.8 Other external cause status; Z23 Encounter for immunization; Z82.49 Family history of ischemic heart disease and other diseases of the circulatory system
CPT/HCPCS: 36415; 70450; 71045; 71260; 72052; 72125; 73610; 74177; 76000; 80048; 80053; 81001; 82948; 84443; 84484; 85025; 85027; 85610; 85730; 87088; 90714; 92610; 93005; 97039; J0330; J0360; J0690; J1100; J1170; J1200; J1630; J1650; J1885; J2001; J2270; J2405; J2704; J2795; J3010; J3480; J3490; J7030; Q9967

== ENCOUNTER 2018-02-20 15:23 | Observation (INO) | payer OTHER ==
[~2018-02-20] VITALS: Ht 157.5 cm; Wt 58.5 kg
[~2018-02-20 15:23] MED LIST changes: +CHOL200074 PO; +CYAN500 PO; -DOXY100T2 PO; +LABE100T5 PO; +LOSA50TA2 PO; +MECL-129 PO; +MEGE400O4 PO; -METO50TA18 PO; +TRAM50TA4 PO; +TRAZ-220 PO
[2018-02-20] MEDS ORDERED: SODIUM CHLORIDE 0.9% 1000ML 1,000 ML IV ONE (16:09)
[2018-02-20 16:28] LABS: BASOPHILS % (AUTO) 0.1 % (0.0-5.0); EOSINOPHILS % (AUTO) 0.2 % (0.0-8.0); HEMATOCRIT 30.7 % (36-48); LYMPHOCYTES % (AUTO) 6.9 % (21.0-51.0); MEAN CORPUSCULAR HEMOGLOBIN 28.4 pg (27.0-33.0); MEAN CORPUSCULAR VOLUME 86.2 fL (79-99); NEUTROPHILS % (AUTO) 86.8 % (40.0-77.0); PLATELET COUNT (AUTO) 298 K/uL (130-400); RED BLOOD CELL COUNT(AUTO) 3.56 MIL/uL (4.00-5.50); RED CELL DISTRIBUTION WIDTH 14.9 % (11.0-15.5); WHITE BLOOD COUNT (AUTO) 9.9 K/uL (4.8-10.8)
[2018-02-20 16:41] LABS: CREATININE 0.8 mg/dL (0.5-1.5); POTASSIUM 3.3 mmol/L (3.5-5.1)
[2018-02-20 17:08] LABS: BILIRUBIN,URINE Negative (NEGATIVE); COLOR,URINE Dark Yellow (YELLOW); GLUCOSE, URINE (UA) Negative (NEGATIVE); KETONES,URINE Negative (NEGATIVE); LEUKOCYTE ESTERASE ,URINE Large (NEGATIVE); NITRATE,URINE Positive (NEGATIVE); OCCULT BLOOD,URINE Small (NEGATIVE); PROTEIN,URINE POS 1+ (NEGATIVE)
[2018-02-20 17:09] LABS: APPEARANCE,URINE CLOUDY (CLEAR)
[2018-02-20 17:15] LABS: AMPHET/METH SCREEN,URINE NEGATIVE (NEGATIVE); BARBITURATE SCREEN, URINE NEGATIVE (NEGATIVE); BENZODIAZEPINES SCREEN,URINE NEGATIVE (NEGATIVE); CANNABINOID SCREEN,URINE NEGATIVE (NEGATIVE); COCAINE SCREEN,URINE NEGATIVE (NEGATIVE); OPIATE SCREEN,URINE NEGATIVE (NEGATIVE); PHENCYCLIDINE SCREEN,URINE NEGATIVE (NEGATIVE)
[2018-02-20 17:20] LABS: BACTERIA,URINE Moderate /HPF (None Seen); SQUAMOUS EPITHELIAL CELL,UR Few /HPF (0-2); WBC,URINE 26-50 /HPF (0-1)
[2018-02-20 17:21] LABS: TRANSITIONAL EPI CELLS,URINE Rare /HPF (None Seen)
[2018-02-20] MEDS ORDERED: SODIUM CHLORIDE 0.9% 50 ML IV ONE (18:30)
[2018-02-20] MEDS ORDERED: CEFTRIAXONE SODIUM 1 GM ONE (18:30)
[2018-02-20] MEDS: LACTATED RINGERS 1000ML 1,000 ML IV SCH (21:15)
[2018-02-20] MEDS ORDERED: ONDANSETRON HCL 4 MG/2 ML VIAL IVP PRN (21:15)
[2018-02-20] MEDS ORDERED: ACETAMINOPHEN 325 MG TAB PO PRN (21:15)
[2018-02-21] VITALS (9 sets, daily range): BP systolic 144–181; BP diastolic 71–87
[2018-02-21 05:22] LABS: RED CELL DISTRIBUTION WIDTH 14.8 % (11.0-15.5)
[2018-02-21 05:29] LABS: CREATININE 0.7 mg/dL (0.5-1.5)
[2018-02-21 05:34] LABS: POTASSIUM 2.9 mmol/L (3.5-5.1)
[2018-02-21 05:42] LABS: HEMATOCRIT 27.7 % (36-48); MEAN CORPUSCULAR HGB CONC 33.6 g/dL (32.0-36.0); MEAN CORPUSCULAR VOLUME 86.1 fL (79-99); PLATELET COUNT (AUTO) 257 K/uL (130-400); RED BLOOD CELL COUNT(AUTO) 3.21 MIL/uL (4.00-5.50); WHITE BLOOD COUNT (AUTO) 10.4 K/uL (4.8-10.8)
[2018-02-21] MEDS ORDERED: ACET-2743 PO (05:45)
[2018-02-21] MEDS ORDERED: HALO5TAB2 PO (05:57)
[2018-02-21] MEDS ORDERED: PARO-37 PO (05:57)
[2018-02-21] MEDS ORDERED: BISA5TAB12 PO (05:57)
[2018-02-21] MEDS ORDERED: LABE200T5 PO (05:57)
[2018-02-21] MEDS ORDERED: BISACODYL 5 MG TABLET.DR PO PRN (06:15)
[2018-02-21] MEDS: VITAMIN D3 PO SCH (09:00)
[2018-02-21] MEDS: IRON POLYSACCHARIDES COMPLEX 150 MG CAPSULE PO SCH (09:00)
[2018-02-21] MEDS: MEGESTROL 400 MG/10 ML UDCUP PO SCH (10:12)
[2018-02-21] MEDS: HALOPERIDOL 5 MG TABLET PO SCH ×2 (10:12→21:14)
[2018-02-21] MEDS: CYANOCOBALAMIN (VITAMIN B-12) 1,000 MCG TABLET PO SCH (10:13)
[2018-02-21] MEDS: GABAPENTIN 300 MG CAPSULE PO SCH ×3 (10:13→21:15)
[2018-02-21] MEDS: PAROXETINE HCL 20 MG TABLET PO SCH (10:13)
[2018-02-21] MEDS: POTASSIUM CHLORIDE 20 MEQ ERTAB PO SCH ×2 (10:14→12:00)
[2018-02-21] MEDS: LABETALOL HCL 200 MG TABLET PO SCH ×2 (10:14→21:14)
[2018-02-21] MEDS: MECLIZINE HCL 25 MG TABLET PO SCH ×2 (10:14→21:15)
[2018-02-21] MEDS: PANTOPRAZOLE SODIUM 40 MG TABLET.DR PO SCH (10:15)
[2018-02-21] MEDS: ENOXAPARIN SODIUM 40 MG/0.4 ML SYRINGE SQ SCH (10:15)
[2018-02-21] MEDS: LOSARTAN 50 MG TABLET PO SCH (10:15)
[2018-02-21] MEDS: LACTATED RINGERS 1000ML 1,000 ML IV SCH (10:35)
[2018-02-21] MEDS ORDERED: GADODIAMIDE 5 MMOL/10 ML VIAL 5 MMOL/10 ML ML IV ONE (11:00)
[2018-02-21] MEDS ORDERED: GADODIAMIDE 10 MMOL/20 ML ML IV ONE (11:06)
[2018-02-21] MEDS ORDERED: VANCOMYCIN PROTOCOL PER PHARMACY IV SCH (16:15)
[2018-02-21] MEDS ORDERED: COMPOUND IV REFRIGERATED 1 EACH IVSOLN MISC PRN (17:15)
[2018-02-21] MEDS ORDERED: VANCOMYCIN 1.25 GM in SODIUM CHLORIDE 0.9% 250 ML IV ONE (18:00)
[2018-02-21] MEDS ORDERED: CEFTRIAXONE SODIUM 1 GM IVP SCH (18:00)
[2018-02-21] MEDS: ATORVASTATIN CALCIUM 10 MG TABLET PO SCH (21:14)
[2018-02-22] MEDS: LACTATED RINGERS 1000ML 1,000 ML IV SCH ×2 (04:14→21:05)
[2018-02-22 04:28] VITALS: BP 148/69
[2018-02-22 05:02] LABS: HEMATOCRIT 30.3 % (36-48); MEAN CORPUSCULAR HEMOGLOBIN 27.5 pg (27.0-33.0); MEAN CORPUSCULAR HGB CONC 32.3 g/dL (32.0-36.0); MEAN CORPUSCULAR VOLUME 85.2 fL (79-99); PLATELET COUNT (AUTO) 276 K/uL (130-400); RED BLOOD CELL COUNT(AUTO) 3.56 MIL/uL (4.00-5.50); RED CELL DISTRIBUTION WIDTH 14.8 % (11.0-15.5); WHITE BLOOD COUNT (AUTO) 7.5 K/uL (4.8-10.8)
[2018-02-22 05:14] LABS: ALBUMIN 2.2 g/dL (3.5-5.0); BILIRUBIN,TOTAL 0.4 mg/dL (0.2-1.0); CREATININE 0.7 mg/dL (0.5-1.5); POTASSIUM 3.4 mmol/L (3.5-5.1); TOTAL PROTEIN, SERUM 6.4 g/dL (6.0-8.3)
[2018-02-22 05:58] LABS: ERYTHROCYTE SEDIMENTATION RATE 121 MM/HR (0-30)
[2018-02-22] MEDS: VANCOMYCIN 750MG + NS 250 ML IV SCH ×4 (06:49→19:02)
[2018-02-22] MEDS ORDERED: HONEY 1 APPL/ML TUBE TP SCH (08:00)
[2018-02-22 08:43] VITALS: BP 152/86
[2018-02-22] MEDS: VITAMIN D3 PO SCH (09:00)
[2018-02-22] MEDS: MEGESTROL 400 MG/10 ML UDCUP PO SCH (10:30)
[2018-02-22] MEDS: ENOXAPARIN SODIUM 40 MG/0.4 ML SYRINGE SQ SCH (10:30)
[2018-02-22] MEDS: MECLIZINE HCL 25 MG TABLET PO SCH ×2 (10:30→21:02)
[2018-02-22] MEDS: PANTOPRAZOLE SODIUM 40 MG TABLET.DR PO SCH (10:30)
[2018-02-22] MEDS: LOSARTAN 50 MG TABLET PO SCH (10:31)
[2018-02-22] MEDS: IRON POLYSACCHARIDES COMPLEX 150 MG CAPSULE PO SCH (10:31)
[2018-02-22] MEDS: LABETALOL HCL 200 MG TABLET PO SCH ×2 (10:31→21:04)
[2018-02-22] MEDS: HALOPERIDOL 5 MG TABLET PO SCH ×2 (10:31→21:01)
[2018-02-22] MEDS: GABAPENTIN 300 MG CAPSULE PO SCH ×3 (10:31→21:02)
[2018-02-22] MEDS: PAROXETINE HCL 20 MG TABLET PO SCH (10:32)
[2018-02-22] MEDS: CYANOCOBALAMIN (VITAMIN B-12) 1,000 MCG TABLET PO SCH (10:32)
[2018-02-22] MEDS: POTASSIUM CHLORIDE 20 MEQ ERTAB PO SCH ×2 (10:35→12:44)
[2018-02-22] MEDS ORDERED: MEROPENEM 1 GM VIAL IVP SCH (15:00)
[2018-02-22 17:34] VITALS: BP 149/78
[2018-02-22 20:03] VITALS: BP 158/68
[2018-02-22] MEDS: ATORVASTATIN CALCIUM 10 MG TABLET PO SCH (21:01)
[2018-02-22 23:37] VITALS: BP 124/58
[2018-02-23 04:19] VITALS: BP 140/81
[2018-02-23] MEDS: VANCOMYCIN 750MG + NS 250 ML IV SCH ×2 (06:00)
[2018-02-23 08:00] VITALS: BP 161/92
[2018-02-23] MEDS: PANTOPRAZOLE SODIUM 40 MG TABLET.DR PO SCH (09:00)
[2018-02-23] MEDS: VITAMIN D3 PO SCH (09:00)
[2018-02-23] MEDS: PAROXETINE HCL 20 MG TABLET PO SCH (09:00)
[2018-02-23] MEDS: MEGESTROL 400 MG/10 ML UDCUP PO SCH (09:00)
[2018-02-23] MEDS: LOSARTAN 50 MG TABLET PO SCH (09:01)
[2018-02-23] MEDS: MECLIZINE HCL 25 MG TABLET PO SCH (09:01)
[2018-02-23] MEDS: GABAPENTIN 300 MG CAPSULE PO SCH ×2 (09:01→14:00)
[2018-02-23] MEDS: IRON POLYSACCHARIDES COMPLEX 150 MG CAPSULE PO SCH (09:01)
[2018-02-23] MEDS: LABETALOL HCL 200 MG TABLET PO SCH (09:01)
[2018-02-23] MEDS: HALOPERIDOL 5 MG TABLET PO SCH (09:01)
[2018-02-23] MEDS: POTASSIUM CHLORIDE 20 MEQ ERTAB PO SCH ×2 (09:02→12:35)
[2018-02-23] MEDS: ENOXAPARIN SODIUM 40 MG/0.4 ML SYRINGE SQ SCH (09:03)
[2018-02-23] MEDS: CYANOCOBALAMIN (VITAMIN B-12) 1,000 MCG TABLET PO SCH (09:03)
[2018-02-23 12:00] VITALS: BP 100/56
[2018-02-23 16:00] VITALS: BP 157/76
[2018-02-23] MEDS ORDERED: ERTA1I IM (17:40)
[2018-02-23 19:10] VITALS: BP 151/84
== END 2018-02-23 21:10 ==
LOC: EDH 15:23 → EDHIP 19:43 → 3AH 23:17
PROVIDERS: ADMIT Internal Medicine; ATTEND Internal Medicine
DX: L97.529 Non-pressure chronic ulcer of other part of left foot with unspecified severity (principal); N39.0 Urinary tract infection, site not specified; B96.20 Unspecified Escherichia coli [E. coli] as the cause of diseases classified elsewhere; G93.41 Metabolic encephalopathy; L03.116 Cellulitis of left lower limb; G62.9 Polyneuropathy, unspecified; D64.9 Anemia, unspecified; E03.9 Hypothyroidism, unspecified; B96.89 Other specified bacterial agents as the cause of diseases classified elsewhere; E78.5 Hyperlipidemia, unspecified; E87.6 Hypokalemia; F32.9 Major depressive disorder, single episode, unspecified; F41.1 Generalized anxiety disorder; G89.29 Other chronic pain; I10 Essential (primary) hypertension; M19.90 Unspecified osteoarthritis, unspecified site; R13.10 Dysphagia, unspecified; V89.2XXA Person injured in unspecified motor-vehicle accident, traffic, initial encounter; Y92.410 Unspecified street and highway as the place of occurrence of the external cause; Y93.89 Activity, other specified; Y99.8 Other external cause status
CPT/HCPCS: 36415 ×3; 70450; 71045; 73110; 73718; 80048 ×2; 80053; 80202; 80305; 81001; 84132; 84484; 85025; 85027 ×2; 85651; 87077; 87088; 87186; 93005; 96361 ×4; 96365; 96366 ×2; 96372 ×3; 96375 ×2; 97039 ×5; 97161; 99285; A4218 ×2; A6446; G0378 ×73; G8978; G8979; G8980; G8981; G8982; G8983; J0696 ×2; J1650 ×3; J2185; J3370 ×4; J7030 ×5; J7120 ×3; A9579; G0008